=== PATIENT | male | born 1980 | race Two or more races ===

== ENCOUNTER → 2024-04-07 07:00 | Outpatient (REF) | payer OTHER, SELFPAY | LOC: PAVMRI 07:00 | PROVIDERS: ATTENDING PHYSICIAN Orthopaedic Surgery | DX: M23.92 Unspecified internal derangement of left knee (principal) | CPT/HCPCS: 73721 ==

== ENCOUNTER → 2024-06-20 14:28 | Outpatient (REF) | payer OTHER, SELFPAY | LOC: MRI 3T 14:28 | PROVIDERS: ATTENDING PHYSICIAN Orthopaedic Surgery; FAMILY PHYSICIAN Family Medicine | DX: S83.231A Complex tear of medial meniscus, current injury, right knee, initial encounter (principal) | CPT/HCPCS: 73721 ==